=== PATIENT | male | born 1965 | race Caucasian/White ===

== ENCOUNTER 2019-06-06 12:51 | Outpatient (CLI) | payer BC, OTHER ==
--- NOTE | 2019-06-06 13:52 | RAD ---
LEFT HAND 3 VIEWS: HISTORY: M19.042, left thumb pain radiating to left hand, primary osteoarthritis. FINDINGS: Osteoarthrosis changes of the trapezium 1st metacarpal joint with narrowing and subchondral cystic ch jamison and some hypertrophic osteophytosis. No evidence for acute fracture or dislocation. IMPRESSION: Osteoarthrosis changes trapezium 1st metacarpal joint. No evidence for significant acute inflammator y arthritis. POS: [facility]
== END 2019-06-06 12:52 | disposition home or self-care (01) ==
LOC: SCSRAD 12:51
PROVIDERS: ATTEND Internal Medicine Rheumatology
DX: M19.042 Primary osteoarthritis, left hand (principal)

== ENCOUNTER 2021-04-22 08:15 | Outpatient (CLI) | payer BC, OTHER | END 2021-04-22 08:16 | disposition home or self-care (01) | LOC: SCSMRI 08:15 | PROVIDERS: ATTEND Psychiatry & Neurology Neurology | DX: R20.2 Paresthesia of skin (principal); M47.812 Spondylosis without myelopathy or radiculopathy, cervical region | CPT/HCPCS: 72141 ==

== ENCOUNTER 2023-06-16 09:03 | Outpatient (CLI) | payer BC, OTHER | END 2023-06-16 09:04 | disposition home or self-care (01) | LOC: SCSMRI 09:03 | PROVIDERS: ATTEND Psychiatry & Neurology Neurology | DX: R90.89 Other abnormal findings on diagnostic imaging of central nervous system (principal); G93.0 Cerebral cysts | CPT/HCPCS: 70553; 82565 ==